=== PATIENT | female | born 1985 | race Caucasian/White ===

== ENCOUNTER 2023-10-19 11:04 | Emergency (ER) | payer MEDICAID ==
[~2023-10-19] VITALS: Ht 167.6 cm; Wt 77.3 kg
[2023-10-19 11:21] VITALS: BP 110/70; PULSE 75; RESP 16; TEMP 97.8
[2023-10-19] MEDS ORDERED: METHOCARBAMOL 500 MG TABLET PO ONE (13:30)
[2023-10-19] MEDS ORDERED: KETOROLAC TROMETHAMINE 60 MG/2 ML VIAL IM ONE (13:30)
[2023-10-19] MEDS ORDERED: IBUP-1492 PO (14:54)
[2023-10-19] MEDS ORDERED: METH-659 PO (14:55)
[2023-10-19] MEDS ORDERED: PREG75 PO (15:12)
== END 2023-10-19 16:48 | disposition home or self-care (01) ==
LOC: EMS 11:04
DX: M54.32 Sciatica, left side (principal)
CPT/HCPCS: 99283; 96372; J1885